=== PATIENT | male | born 1950 | race Caucasian/White ===

== ENCOUNTER 2017-05-03 09:23 | Emergency (ER) | payer MEDICARE ==
[2017-05-03 10:24] LABS: BASOPHILS 0.3 % (0-2); EOSINOPHILS 2.3 % (0-7); HEMATOCRIT 52.4 % (42.0-54.0); HEMOGLOBIN 18.5 g/dL (13.5-17.5); IMMATURE GRANULOCYTES 0.6 % (0-5); MCH 32.1 pg (26.0-34.0); MCHC 35.3 g/dL (31.0-37.0); MEAN PLATELET VOLUME 12.3 fL (7.4-10.4); MONOCYTES 10.5 % (2-11); NEUTROPHILS 75.3 % (40-80); PLATELET COUNT 144 10x3/uL (130-400); RBC 5.76 10x6/uL (4.20-6.10); RDW 13.7 % (11.5-14.5); WBC 6.2 10x3/uL (4.8-10.8)
[2017-05-03 10:39] LABS: ALBUMIN 4.1 g/dL (3.4-5.0); ALKALINE PHOSPHATASE 84 U/L (46-116); ALT (SGPT) 29 U/L (10-68); CALC OSMOLALITY 276 mosm/kg (275-300); CALCIUM 9.1 mg/dL (8.5-10.1); CHLORIDE - SERUM 103 mmol/L (98-107); CREATININE - SERUM 1.4 mg/dL (0.6-1.3); GLUCOSE 98 mg/dL (74-106); PROTEIN - SERUM 7.5 g/dL (6.4-8.2); SODIUM 137 mmol/L (136-145); UREA NITROGEN 22 mg/dL (7-18); eGFR NON AFRICAN AMERICAN 54 mL/min (90-120)
[2017-05-03 10:50] LABS: CHOL - HDL RATIO 5.1 ratio (2.3-4.9); CHOLESTEROL, TOTAL 174 mg/dL (0-200); CKMB 2.2 U/L (0.0-3.6); CREATINE KINASE 226 UL (21-232); HDL CHOLESTEROL 34 mg/dL (32-96); LDL CHOLESTEROL 114 mg/dL (0-100); LDL-HDL RATIO 3.4 ratio (1.5-3.5); TRIGLYCERIDE 133 mg/dL (30-200); TROPONIN-I 0.018 ng/mL (0.000-0.060)
[2017-05-03 22:23] VITALS: BMI 29.0
[2017-05-03] MEDS ORDERED: HYDRALAZINE HCL50 MG PO (23:01)
[2017-05-03] MEDS ORDERED: DIOVAN160 MG PO (23:02)
[2017-05-04] MEDS ORDERED: HYDROCHLOROTHIA25 MG PO (16:36)
[2017-05-04] MEDS ORDERED: COREG12.5 MG PO (16:37)
== END 2017-05-03 10:34 | disposition home or self-care (01) ==
LOC: D.ER 09:23
PROVIDERS: Emergency Medicine
DX: I49.9 Cardiac arrhythmia, unspecified (principal); I10 Essential (primary) hypertension; I49.3 Ventricular premature depolarization

== ENCOUNTER 2017-05-03 16:18 | Observation (INO) | payer MEDICARE ==
[~2017-05-03] VITALS: Ht 170.2 cm; Wt 84.0 kg
--- NOTE | ~2017-05-03 | HEMODYNAMI ---
PATIENT:PACO CROW MEDICAL RECORD: [id number] : 52 LOCATION:[address] ADMISSION DATE: 05/03/17 Generatedon:05/04/201716:07 Patient name: PACO CROW Patient #: [id number] SSN: : 1950 Date of study: 05/04/2017 Page: Of Hemodynamic Procedure Report Patient Data Patient Demographics Procedure consent was obtained First Name: PACO Gender: Male Last Name: TRISTIN : 1950 [facility] Initial: R Age: 66 year(s) Patient #: [id number] Race: Unknown Additional ID: [id number] Contact details Address: [place] [address] [facility] [place] [facility] Zip code: [address] Past Medical History Allergies: No known allergies Admission Admission Data Admission Date: 05/03/2017 Admission Time: 18:40 Admit Source: Other Room #: 2129 Procedure Procedure Types Cath Procedure Diagnostic Procedure LHC LH w/Coronaries Miscellaneous Procedures Moderate Sedation up to 15 minutes Peripheral Cath Diagnostic Procedure Abd/Extremity Aortagram Procedure Description Procedure Date Procedure Date: 05/04/2017 Procedure Start Time: 15:34 Procedure End Time: 16:05 Procedure Staff Name Function Ramón Fitzgerald MD Performing Physician Jacky Hazel RT Monitor Rigo Collins RT Scrub Denny Mcnulty RN Nurse Procedure Data Cath Procedure Fluoroscopy Diagnostic fluoroscopy Total fluoroscopy Time: 7 time: 7 min min Diagnostic fluoroscopy Total fluoroscopy dose: 310 dose: 310 mGy mGy Contrast Material Contrast Material Type Amount (ml) Isovue 300 146 Entry Location Entry Primary Successful Side Size Upsize Upsize Entry Closure Succes sful Closure Location (Fr) 1 (Fr) 2 (Fr) Remarks Device Remarks Femoral Left 5 Fr Exoseal artery Estimated blood loss: 10 ml Diagnostic catheters Device Type Used For End Catheter Placement MULTIPACK JL 4.0 5Fr Procedure catheter DIAGNOSTIC JL 5 5Fr Procedure catheter ([id number]) MULTIPACK 3DRC 5Fr Procedure catheter DIAGNOSTIC AR MOD 5Fr Procedure Catheter ([id number]) MULTIPACK Pigtail 5 Fr Procedure catheter Procedure Complications No complications Procedure Medications Medication Administration Route Dosage Oxygen NC 2 l/min Heparin Flush Bag added to field 2 bags (1000units/500ml NS) 0.9% NaCl I.V. 100 ml/hr Radial Cocktail added to field 1 syringe (Verapomil 2mg/Nitro 400mcg/Heparin 1500units) Fentanyl I.V. 100 mcg Versed I.V. 2 mg Fentanyl I.V. 100 mcg Versed I.V. 2 mg Lopressor I.V. 5 mg Hemodynamics Rest Heart Rate: 94 (bpm) Pressure Samples Time Site Value (mmHg) Purpose Heart Use Rate(bpm) 15:47 AO 166/107(133) Snapshot 82 15:55 LV 185/-19,5 Snapshot 88 15:55 AO 176/115(143) Pullback 88 15:55 LV 175/-5,9 Pullback 88 Gradients Valve Time Site 1 Site 2 Mean SEP/DFP Peak To Heart Use (mmHg) (sec/min) Peak Rate (mmHg) (bpm) Aortic 15:55 LV AO 0 13 0 88 175/-5,9 176/115(143) Calculations Valve P-P Mean Valve Index Valve Source Name Gradient Area Flow (cm2) Aortic 0 0 0 0 Snapshots Pre Cath Intra NCS Post Cath Vital Signs Time Heart Resp SPO2 etCO2 NIBP (mmHg) Rhythm Pain Sedation Rate (ipm) (%) (mmHg) Status Level (bpm) 15:21:58 93 17 96 29.9 188/120(170) NSR 0 (11) 10(A) , No pain 15:26:42 82 17 93 28.4 187/116(154) NSR 0 (11) 10(A) , No pain 15:31:19 84 17 94 33.6 195/123(140) NSR 0 (11) 10(A) , No pain 15:36:03 83 18 96 35.2 201/129(154) NSR 0 (11) 10(A) , No pain 15:40:44 91 19 94 30.7 190/128(156) NSR 0 (11) 10(A) , No pain 15:45:21 81 18 93 35.2 166/122(143) NSR 0 (11) 10(A) , No pain 15:49:51 81 16 94 38.9 169/110(144) NSR 0 (11) 10(A) , No pain 15:54:23 104 18 94 35.2 169/116(148) NSR 0 (11) 10(A) , No pain 15:58:54 79 16 95 28.4 184/124(171) NSR 0 (11) 10(A) , No pain 16:03:26 71 16 93 34.4 168/111(137) NSR 0 (11) 10(A) , No pain Medications Time Medication Route Dose Verified Delivered Reason Notes Eff ectiveness by by 15:22:04 Oxygen NC 2 l/min Ramón Baldwin Per [facility] Marcelino Mcnulty RN physician 15:22:14 Heparin Flush added 2 bags Ramón Baldwin used for Bag to [facility] Marcelino Mcnulty RN procedure (1000units/500ml field NEUMANN NS) 15:22:25 0.9% NaCl I.V. 100 Ramón Denny Per ml/hr [facility] Marcelino Mcnulty RN physician 15:22:33 Radial Cocktail added 1 Ramón Denny used for (Verapomil to syringe [facility] Marcelino Mcnulty prospecting driller 2mg/Nitro field NEUMANN 400mcg/Heparin 1500units) 15:35:11 Fentanyl I.V. 100 mcg Ramón Baldwin for [facility] Marcelino Mcnulty RN sedation 15:35:18 Versed I.V. 2 mg Ramón Baldwin for [facility] Marcelino Mcnulty RN sedation 15:42:25 Fentanyl I.V. 100 mcg Ramón Baldwin for [facility] Marcelino Mcnulty RN sedation 15:42:29 Versed I.V. 2 mg Ramón Baldwin for [facility] Marcelino Mcnulty RN sedation 15:56:08 Lopressor I.V. 5 mg Ramón Baldwin Per [facility] Marcelino Mcnulty RN physician Procedure Log Time Note 14:55:33 Denny Mcnulty RN sent for patient. Start room use. 15:02:09 Informed consent obtained and on chart 15:02:13 Admit Source: Other 15:02:31 Diagnostic Cath status Elective 15:02:34 Time tracking: Regular hours 15:02:37 Plan of Care:Hemodynamics will remain stable., Cardiac rhythm will remain stable., Comfort level will be maintained., Respiratory function will remain adequate., Patient/ family verbilizes understanding of procedure., Procedure tolerated without complication., Recovers from procedure without complications.. 15:06:42 Patient received from Med II to CCL 3 Alert and oriented. Tansferred to table in Supine position. 15:06:43 Warm blankets applied, and allen hugger turned on for patient comfort. 15:06:44 Correct patient and procedure confirmed by team. 15:06:45 ECG and BP/O2 sat monitors applied to patient. 15:07:07 H&P Date Dictated: 05/03/2017 Within 30 days and on chart.. 15:07:08 Pre-procedure instructions explained to patient. 15:07:09 Pre-op teaching completed and patient verbalized understanding. 15:07:11 Family in patients room. 15:07:12 Patient NPO since Midnight. 15:07:21 Patient allergic to No known allergies 15:20:30 Vital chart was started 15:21:17 Is the patient allergic to Iodine/contrast media? No. 15:21:21 Is patient on blood thinner?No 15:21:22 Patient diabetic? No. 15:21:26 Previous problem with sedation/anesthesia? No ? 15:21:31 Snore? Yes 15:21:32 Sleep apnea? No 15:21:33 Deviated septum? No 15:21:33 Opens mouth fully? Yes 15:21:34 Sticks out tongue? Yes 15:21:36 Airway obstruction? No ? 15:21:38 Dentures? No ? 15:21:41 Pre procedure: left dorsailis pedis pulse 1+ Palpable, but thready & weak; easily obliterated 15:21:44 Modified Cliff's test Ulnar < 7 seconds 15:21:45 Patient pain scale 0/10 ?. 15:21:54 Lab results completed and on chart. 15:22:04 Oxygen 2 l/min NC was administered by Denny Mcnulty RN; Per physician; 15:22:05 Right Radial & Left Groin area was prepped with chlora-prep and draped in sterile fashion 15:22:06 Alarms reviewed by R. N. 15:22:07 Sharps counted by scrub and verified by R.N. 15:22:11 Baseline sample Acquired. 15:22:14 Heparin Flush Bag (1000units/500ml NS) 2 bags added to field was administered by Denny Mcnulty RN; used for procedure; 15::18 Rhythm: sinus rhythm 15:22:20 Full Disclosure recording started 15::25 0.9% NaCl 100 ml/hr I.V. was administered by Denny Mcnulty RN; Per physician; 15::33 Radial Cocktail (Verapomil 2mg/Nitro 400mcg/Heparin 1500units) 1 syringe added to field was administered by Denny Mcnulty RN; used for procedure; 15: --------ALL STOP TIME OUT------ 15::28 Final Timeout: patient, procedure, and site verified with staff and physician. All members of the team are in agreement. 15:27:30 Right Radial & Left Groin site verified by team. 15:27:34 Physical assessment completed. ASA score P 2 - A patient with mild systemic disease as per Ramón Fitzgerald MD. 15:27:37 Sedation plan: IV Moderate Sedation Medication:Versed, Fentanyl 15:30:26 Use device set Radial Dx 15:30:29 Tegaderm 4 x 4 (1626W) opened to sterile field. 15:30:29 ACIST Manifold (34452) opened to sterile field. 15:30:30 ACIST Hand Control (97155) opened to sterile field. 15:30:32 ACIST Syringe (27566) opened to sterile field. 15:30:33 Medline Cath Pack ([id number]) opened to sterile field. 15:30:33 Bag Decanter (2001S) opened to sterile field. 15:30:34 SHEATH 6FR Slender ([id number]) opened to sterile field. 15:30:34 DIAGNOSTIC WIRE .035 260cm J wire (652848) opened to sterile field. 15:30:35 MBrace Wrist Support ([id number]) opened to sterile field. 15:34:45 Procedure started. 15:34:58 Local anesthetic to right radial artery with Lidocaine 2% by Ramón Fitzgerald MD.INITIAL ACCESS ONLY 15:35:11 Fentanyl 100 mcg I.V. was administered by Denny Mcnulty RN; for sedation; 15:35:18 Versed 2 mg I.V. was administered by Denny Mcnulty RN; for sedation; 15:36:08 Zero performed for pressure channel P1 15:40:59 Unable to advance wire due to radial loop. Moving to Femoral approach. 15:41:13 SHEATH 5FR Benson (KHT771) opened to sterile field. 15:41:21 Local anesthetic to left femerol artery with Lidocaine 2% by Ramón Fitzgerald MD.ADDITIONAL ACCESS 15:42:00 A 5 Fr sheath was inserted into the Left Femoral artery 15:42:04 Use device set Multipack Set 15:42:06 DIAGNOSTIC Multipack 5Fr catheter set ([id number]) opened to sterile field. 15:42:25 Fentanyl 100 mcg I.V. was administered by Dneny Mcnulty RN; for sedation; 15:42:29 Versed 2 mg I.V. was administered by Denny Mcnulty RN; for sedation; 15:44:03 A MULTIPACK JL 4.0 5Fr catheter was advanced over the wire and used for Procedure. 15:45:21 Catheter removed. unable to cannulate vessel. 15:45:33 A DIAGNOSTIC JL 5 5Fr catheter ([id number]) was advanced over the wire and used for Procedure. 15:47:28 LCA angiography performed. 15:48:36 Catheter exchanged over wire. 15:49:00 A MULTIPACK 3DRC 5Fr catheter was advanced over the wire and used for Procedure. 15:51:21 Catheter removed. unable to cannulate vessel. 15:51:43 A DIAGNOSTIC AR MOD 5Fr Catheter (344884F) was advanced over the wire and used for Procedure. 15:53:13 RCA angiography performed. 15:53:39 Catheter exchanged over wire. 15:53:45 A MULTIPACK Pigtail 5 Fr catheter was advanced over the wire and used for Procedure. 15:55:20 LV angiography performed. 15:55:31 LV gram done using AWAN 15:55:35 EF : 55 % 15:55:37 LV hemodynamics recorded. 15:55:40 Injector settings: Ml/sec: 10, Volume: 20, 15:56:08 Lopressor 5 mg I.V. was administered by Denny Mcnulty RN; Per physician; 15:56:32 Abdominal Aortagram was performed. 15:57:04 Injector settings: Ml/sec: 10, Volume: 20, 15:57:14 Catheter removed. 15:57:25 EXOSEAL 5Fr (EX500) opened to sterile field. 15:59:29 Sheath removed intact; hemostasis achieved with Exoseal to the Left Femoral artery. 15:59:31 Procedure ended.(Physican Out) 15:59:58 Contrast amount:Isovue 300 146ml. 16:00:26 Fluoroscopy time 07.00 minutes. 16:00:30 Fluoroscopy dose: 310 mGy 16:00:30 Flurop Dose total: 310 16:00:32 Sharps counted by scrub and verified by R.N. 16:00:33 Insertion/operative site no bleeding no hematoma. 16:00:36 Post-op/insertion site Left Femoral artery dressed using a 4 x 4 and Tegaderm. 16:00:38 Post Procedure Pulses reassessed and unchanged 16:00:40 Post-procedure physical assessment completed. ASA score P 2 - A patient with mild systemic disease as per Ramón Fitzgerald MD. 16:00:43 Post procedure rhythm: unchanged. 16:00:46 Estimated blood loss: 10 ml 16:00:47 Post procedure instruction explained to patient.Patient verbalizes understanding. 16:00:47 Patient needs reinforcement of post procedure teaching. 16:01:19 Procedure type changed to Cath procedure, Diagnostic procedure, LHC, LHC w/Coronaries, Miscellaneous Procedures, Moderate Sedation up to 15 minutes, Peripheral Cath Diagnostic Procedure, Abd/Extremity, Aortagram 16:03:01 Procedure and supply charges have been captured, reviewed, submitted and are correct. 16:03:04 Procedure Complication : No complications 16:05:39 Vital chart was stopped 16:05:39 See physician's report for complete and final results. 16:05:41 Report given to PCU. 16:05:43 Patient transfered to PCU with Bed. 16:05:45 Procedure ended. 16:05:45 Full Disclosure recording stopped 16:05:55 End room use (Document Last) Device Usage Item Name Manufacture Quantity Catalog Hospital Part Current Minima l Lot# / Number Charge Number Stock Stock Serial# Code Tegaderm 4 x 3M 1 1626W [id number] 663578 322433 5 4 (1626W) ACIST Acist 1 48043 316512 195190 285476 5 Manifold Medical (46690) Systems Inc ACIST Hand Acist 1 26480 300397 453458 631045 5 Control Medical (58901) Systems Inc ACIST Acist 1 63766 953693 467110 147657 20 Syringe Medical (31497) Systems Inc Medline Cath Cardinal 1 [id number] 171702 93338 530479 5 Pack Health ([id number]) Bag Decanter Microtek 1 2001S 556968 71806 589379 5 (2001S) Medical Inc. SHEATH 6FR Terumo 1 [id number] 438230 451488 317201 40 Slender ([id number]) DIAGNOSTIC [facility] 1 247583 329485 949566 290400 30 WIRE .035 260cm J wire (497025) MBrace Wrist Advanced 1 140-0250-00 981081 61592 520487 5 Support Vascular ([id number]) Dynamics SHEATH 5FR Terumo 1 LIQ250 405611 072364 513413 40 Benson (KPH707) DIAGNOSTIC Cardinal 1 AN4292 555702 93211 056042 30 Multipack Health 5Fr catheter set (EU5131) MULTIPACK JL Cardinal 1 444542 5 4.0 5Fr Health catheter DIAGNOSTIC Cardinal 1 [id number] 412608 615121 812959 5 JL 5 5Fr Health catheter (881475Z) MULTIPACK Cardinal 1 588381 5 3DRC 5Fr Health catheter DIAGNOSTIC Cardinal 1 [id number] 123871 312643 172554 15 AR MOD 5Fr Health Catheter (091658M) MULTIPACK Cardinal 1 214358 5 Pigtail 5 Fr Health catheter EXOSEAL 5Fr Cardinal 1 EX500 421465 163008 132588 10 (EX500) Health Signature Audit [place] Stage Time Signature Unsigned Intra-Procedure 05/04/2017 Jacky Hazel 4:07:38 PM RT(R) Signatures Monitor : Jacky Hazel RT Signature : Date : Time : [place] [id number] [place] [address]
[2017-05-03 16:59] LABS: BASOPHILS 0.3 % (0-2); EOSINOPHILS 1.3 % (0-7); HEMATOCRIT 53.4 % (42.0-54.0); HEMOGLOBIN 19.1 g/dL (13.5-17.5); IMMATURE GRANULOCYTES 0.4 % (0-5); LYMPHOCYTES 14.7 % (15-50); MCH 32.4 pg (26.0-34.0); MCHC 35.8 g/dL (31.0-37.0); MCV 90.5 fL (80.0-100.0); MEAN PLATELET VOLUME 12.2 fL (7.4-10.4); NEUTROPHILS 70.3 % (40-80); PLATELET COUNT 166 10x3/uL (130-400); RDW 13.6 % (11.5-14.5); WBC 7.6 10x3/uL (4.8-10.8)
[2017-05-03 17:23] LABS: APTT 35.9 SECONDS (22.8-39.4); INR 0.95 (0.85-1.17); PROTIME 12.3 SECONDS (11.6-15.0)
[2017-05-03 17:32] LABS: ANION GAP 14.9 mmol/L (8-16); BILIRUBIN - TOTAL 0.64 mg/dL (0.2-1.3); CALCIUM 8.8 mg/dL (8.5-10.1); CARBON DIOXIDE 21.9 mmol/L (21.0-32.0); CREATININE - SERUM 1.4 mg/dL (0.6-1.3); POTASSIUM - SERUM 3.8 mmol/L (3.5-5.1); PROTEIN - SERUM 7.2 g/dL (6.4-8.2)
[2017-05-03 17:36] LABS: TROPONIN-I 0.034 ng/mL (0.000-0.060)
--- NOTE | 2017-05-03 20:39 | NUR ---
PT ARRIVED TO FLOOR FROM ER BY WHEELCHAIR. ACCOMPANIED BY HOSPITAL STAFF AND , LASHAWN. VSS. BREATHING EVEN AND UNLABORED. ON 2L OXYGEN VIA NC. ORIENTED PT TO ROOM, NURSE, AND FLOOR. DENIES ANY NEEDS AT THIS TIME. WILL CTM.
[2017-05-03 22:23] VITALS: BP 168/102; Ht 170.2 cm; Wt 84.0 kg
[2017-05-03] MEDS ORDERED: HYDRALAZINE HCL50 MG PO (23:01)
[2017-05-03] MEDS ORDERED: DIOVAN160 MG PO (23:02)
[2017-05-04 04:00] VITALS: BP 159/106
--- NOTE | 2017-05-04 07:15 | NUR ---
RECIEVED REPORT ON PATIENT, PATIENT IS ALERT AND ORIENTED AT THIS TIME. PATIENT HAS A R FA IV WITH NS INFUSING AT 50ML/HR. PATIENT IS SR ON MONITOR WITH A RATE OF 73. PATIENT IS AT BEDSIDE. PATIENT IS CONCERNED ABOUT HIS BNP AND MEDICATIONS NOT BEING RESTARTED, WILL TALK WITH DR REY AND GET MEDICATIONS RESTARTED. DENIES ANY OTHER NEEDS. CALL LIGHT IN REACH. CPOC
[2017-05-04 08:00] VITALS: BP 149/102
[2017-05-04 08:51] LABS: BASOPHILS 0.5 % (0-2); CALCIUM 8.8 mg/dL (8.5-10.1); CREATININE - SERUM 1.8 mg/dL (0.6-1.3); EOSINOPHILS 2.2 % (0-7); HEMATOCRIT 50.7 % (42.0-54.0); HEMOGLOBIN 17.4 g/dL (13.5-17.5); IMMATURE GRANULOCYTES 0.2 % (0-5); LYMPHOCYTES 18.3 % (15-50); MCH 31.8 pg (26.0-34.0); MCHC 34.3 g/dL (31.0-37.0); MEAN PLATELET VOLUME 12.4 fL (7.4-10.4); MONOCYTES 10.9 % (2-11); NEUTROPHILS 67.9 % (40-80); PLATELET COUNT 146 10x3/uL (130-400); RBC 5.47 10x6/uL (4.20-6.10); RDW 13.8 % (11.5-14.5); WBC 6.5 10x3/uL (4.8-10.8)
[2017-05-04 08:57] LABS: MCV 92.7 fL (80.0-100.0)
--- NOTE | 2017-05-04 09:20 | NUR ---
MORNING MEDICATION GIVEN. DENIES ANY NEEDS AT THIS TIME. CONSENTS SIGNED FOR HEART CATH. PATIENT REFUSING TO GET EKG DONE, STATED THAT DR REY STATED HE DIDN'T HAVE TO HAVE ANOTHER. DENIES ANY NEEDS. CPOC
--- NOTE | 2017-05-04 11:00 | NUR ---
PATIENT RESTING AT THIS TIME, NAD NOTED. BED LOW AND LOCKED. AT BEDSIDE. CPOC
--- NOTE | 2017-05-04 13:00 | NUR ---
PATIENT BP 178/121. 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 CPOC
[2017-05-04 13:16] VITALS: BP 178/121
--- NOTE | 2017-05-04 14:53 | NUR ---
PATIENT PREOP AND READY FOR COGNOS BI ADMINISTRATOR. CPOC
--- NOTE | 2017-05-04 15:30 | NUR ---
PATIENT GONE TO MIDDLE SCHOOL PRINCIPAL
--- NOTE | 2017-05-04 16:30 | NUR ---
PATIENT BACK FROM INSURANCE AGENT, PATIENT Leilani ISAAC WNL. VS STABLE, BESIDES BP PATIENT IS 168/109. DR AWARE. PATIENT DENIES ANY OTHER NEEDS. CPOC
[2017-05-04] MEDS ORDERED: HYDROCHLOROTHIA25 MG PO (16:36)
[2017-05-04] MEDS ORDERED: COREG12.5 MG PO (16:37)
--- NOTE | 2017-05-04 18:17 | NUR ---
ROUNDS MADE, PATIENT NEEDS MET. DENIES ANY FURTHER NEEDS. BED LOW AND LOCKED. CALL LIGHT IN REACH. IV DC WITH CATH TIP INTACT. CPOC
--- NOTE | 2017-05-04 19:15 | NUR ---
DISCHARGE INSTRUCTIONS GIVEN ALONG WITH PRESCRIPTIONS. REMOVED TELEMETRY AND INFORMED PT TO CALL WHEN HE GETS DRESSED AND WE WILL ESCORT THEM OUT VIA W/C.
--- NOTE | 2017-05-04 19:43 | NUR ---
DC HOME VIA WC, AT PTS SIDE.
--- NOTE | 2017-05-12 13:05 | HP ---
PATIENT: PACO CROW MEDICAL RECORD: [id number] ACCOUNT: [id number] LOCATION:[address] : [birth year] ADMISSION DATE: 05/03/17 HISTORY AND PHYSICAL EXAMINATION HISTORY OF PRESENT ILLNESS: A 66-year-old gentleman with no known history of coronary artery disease. He has a history of hypertension, PVCs unifocal in nature, has been having problems with his blood pressure. Yesterday, while tapering off clonidine, he had episode of chest tightness, could not get his deep breath, and nausea. He had no acute ST changes, but returned later with same symptomatology, had elevation in his troponin, certainly concerning for LV strain versus fixed obstructive disease. He is admitted for further evaluation. PAST MEDICAL HISTORY: History of hypertension. ALLERGIES: None known. SOCIAL HISTORY: . He takes care of all ADLs. Social drinker. No illicit drug use. MEDICATIONS: Include valsartan 160 b.i.d., hydralazine 50 t.i.d. REVIEW OF SYSTEMS: The patient reports easy bruising but reports no swollen glands. The patient reports no fever, no night sweats, no significant weight gain, no significant weight loss. No significant exercise tolerance. The patient reports no dry eyes, no irritation, no vision change. Patient reports no difficulty hearing and no ear pain. Patient reports no frequent nose bleeds or nose and sinus problems. Patient reports on arm pain on exertion. No shortness of breath while lying down. No history of heart murmur. Patient reports no cough, no wheezing or coughing up blood. Patient reports no abdominal pain, no vomiting. Normal appetite. No diarrhea and not vomiting blood. No nausea and no constipation. Patient reports no incontinence. No difficulty urinating. No hematuria. No increased frequency. Patient reports no muscle aches. No weakness, no arthralgias, no back pain. No swelling of the extremities. Patient reports no abnormal mole, no jaundice, no rashes. Reports no loss of consciousness. No weakness and no numbness. No seizures, dizziness, or headaches. The patient reports no depression, no sleep disturbance, feeling safe in a relationship and no alcohol abuse. Patient reports on fatigue. Reports no runny nose or sinus pressure. No itching, no hives, and no frequent sneezing. PHYSICAL EXAMINATION: GENERAL: Pleasant gentleman, in no acute distress, appears stated age. VITAL SIGNS: Pulse 76 and regular, blood pressure 149/102. HEENT: Normocephalic, atraumatic. NECK: No JVD or bruit. HEART: Regular. LUNGS: Good air excursion. ABDOMEN: Soft, nontender. EXTREMITIES: Pulse 2+ with no edema. IMPRESSION: Elevated troponin, questionable whether secondary to strain from some rebound coming off clonidine or a true fixed lesion. Will discuss with family. HISTORY AND PHYSICAL [id number] PACO CROW PLAN: Diagnostic angiography. Intervention based on the above. TRANSINT:[id number] Voice Confirmation ID: [id number] DOCUMENT ID: [id number] GWENDOLYN REY MD at 1305 CC: [id number] DICTATION DATE: 05/04/1759 RECREATION CLERK: 05/04/17 1029 DIS IN 05/04/17 [facility] [address] [place] [address]
--- NOTE | 2017-05-12 13:05 | OP ---
PATIENT NAME: PACO CROW MEDICAL RECORD: [id number] :52 LOCATION:[address] ADMISSION DATE:05/03/17 SURGEON: GWENDOLYN REY MD DATE OF OPERATION: 05/04/2017 PROCEDURES: Left heart catheterization, selective coronary plus abdominal aortogram, right femoral approach. CATHETERS: A 5-Malay sheath, 5/4 Flor, 5/4 pig. The procedure was well tolerated. The patient returned to the parks, sheath removed. ExoSeal device placed. FINDINGS: Left ventriculography in the 30-degree AWAN view. Normal wall motion, normal systolic function. CORONARY ANATOMY. LEFT MAIN: Left main is free of disease. LAD: It is free of disease in the diagonal system. CIRCUMFLEX: Free of disease in the marginal system. RIGHT CORONARY ARTERY: Codominant system free of disease. At the end of procedure, the pigtail catheter was withdrawn to the level of the renal arteries, abdominal aortogram was performed that showed no evidence of aneurysm, a smooth-walled vessel. No evidence of stenosis about the renal artery. TRANSINT:[id number] Voice Confirmation ID: [id number] DOCUMENT ID: [id number] GWENDOLYN REY MD at 1305 CC: [id number] DICTATION DATE: 05/04/17 161 ENGINEERING RECRUITER: 05/04/171956 DIS IN 05/04/17 [facility] [address] [place] [address]
== END 2017-05-04 19:40 | disposition home or self-care (01) ==
LOC: D.ER 16:18 → D.M2 18:40 → OBSVTIME 18:40 → D.M2 05-04 19:40
PROVIDERS: Emergency Medicine; ADMIT Internal Medicine Interventional Cardiology
DX: I10 Essential (primary) hypertension (principal); R79.89 Other specified abnormal findings of blood chemistry

== ENCOUNTER → 2018-09-27 09:15 | Outpatient (CLI) | payer MEDICARE ==
[~2018-09-27 09:15] MED LIST: COREG12.5 MG PO; DIOVAN160 MG PO; HYDRALAZINE HCL50 MG PO; HYDROCHLOROTHIA25 MG PO
--- NOTE | 2018-10-02 10:06 | EC ---
PATIENT:PACO CROW DATE OF SERVICE: 09/27/18 SEX: M MEDICAL RECORD: [id number] DATE OF : 52 LOCATION:D[facility] AGE OF PATIENT: 68 ADMISSION DATE: 09/27/18 REFERRING PHYSICIAN: INTERPRETING PHYSICIAN: GWENDOLYN REY MD ECHOCARDIOGRAM REPORT ECHO CHARGES 4 ECHO COMPLETE Date: 09/27/18 CLINICAL DIAGNOSIS: H/O HTN ECHOCARDIOGRAPHIC MEASUREMENTS (adult normal given) AC root (d.<3.7cm) 4.1 cm LV Septum d (<1.2 cm> 1.2 cm Valve Excursion 2.2 cm LV Septum (systole) 1.6 cm Left Atria (s.<4.0cm> 4.6 cm LVPW d(<1.2cm) 1.2 cm RV (d.<2.3cm) 3.0 cm LVPW (sytole) 1.9 cm LV diastole(<5.6CM) 6.6 cm MV E-F(>70mm/sec) cm LV systole 4.8 cm LVOT Diameter 2.3 cm MV exc.(>10mm) cm Est.ejection fraction (50-75%) % DOPPLER: LVIT cm/sec A 70.0 cm/sec E 38.0 cm/sec LA cm/sec RVSP 30.0 mmHg LVOT 87.0 cm/sec AOP1/2T m/s Asc. Ao 122 cm/sec RVOT 50.0 cm/sec RA cm/sec PA 96.0 cm/sec AV Gradient Peak 6.0 mmHg AV Mean 3.3 mmHg AV Area 3.0 cm MV Gradient Peak 2.9 mmHg MV Mean 0.78 mmHg MV Area cm COMMENTS: OP - HC Supervisor Compounding And Finishing: Trever BERNAL OMID Field Counsel: 3 Dr. Fitzgerald TAPE# PACS Pericardial Effusion N DATE OF SERVICE: Adequate 2D, color flow, spectral Doppler, and M-Mode. No LVH. LV internal dimension is normal. Wall motion is normal. EF is greater than or equal to 55%. Aortic valve sclerosis without evidence of stenosis on Doppler interrogation. Left atrium dilated at 4.6 cm. Mitral prolapse shows no prolapse. Trace MR. Right-sided chambers grossly normal. Trace TR. TRANSINT:[id number] Voice Confirmation ID: [id number] DOCUMENT ID: [id number] ECHOCARDIOGRAM REPORT [id number] PACO CROW GREGORY A MD at 1006 CC: [id number] DICTATION DATE: 09/27/18 160 PHYSICS FACULTY MEMBER: 09/28/18 0207 DEP CLI 09/27/18 [place] [id number] [place] [address]
== END | disposition home or self-care (01) ==
LOC: D.HCCARDIO 09:15
PROVIDERS: ATTEND Internal Medicine Interventional Cardiology
DX: I10 Essential (primary) hypertension (principal)

== ENCOUNTER → 2020-10-20 09:54 | Outpatient (CLI) | payer MEDICARE ==
--- NOTE | ~2020-10-20 | EC ---
PATIENT:PACO CROW DATE OF SERVICE: 10/20/20 SEX: M MEDICAL RECORD: [id number] DATE OF : 52 [facility] AGE OF PATIENT: 70 ADMISSION DATE: 10/20/20 REFERRING PHYSICIAN: INTERPRETING PHYSICIAN: GWENDOLYN REY MD ECHOCARDIOGRAM REPORT ECHO CHARGES 4 ECHO COMPLETE Date: 10/20/20 CLINICAL DIAGNOSIS: HEART MURMUR HX HTN/RENAL INSUFFICIENCY ECHOCARDIOGRAPHIC MEASUREMENTS (adult normal given) AC root (d.<3.7cm) 4.3 cm LV Septum d (<1.2 cm> 1.6 cm Valve Excursion 2.0 cm LV Septum (systole) 1.8 cm Left Atria (s.<4.0cm> 4.4 cm LVPW d(<1.2cm) 1.5 cm RV (d.<2.3cm) 2.9 cm LVPW (sytole) 2.0 cm LV diastole(<5.6CM) 4.7 cm MV E-F(>70mm/sec) cm LV systole 3.4 cm LVOT Diameter 2.3 cm MV exc.(>10mm) 1.2 cm Est.ejection fraction (50-75%) % DOPPLER: LVIT cm/sec A 92.0 cm/sec E 44.0 cm/sec LA cm/sec RVSP 13 mmHg LVOT 59 cm/sec AOP1/2T m/s Asc. Ao 95 cm/sec RVOT 52 cm/sec RA cm/sec PA 133 cm/sec AV Gradient Peak 3.59 mmHg AV Mean 198 mmHg AV Area 2.8 cm MV Gradient Peak 4.19 mmHg MV Mean 1.60 mmHg MV Area cm COMMENTS: Lacquer Maker: 2 REESE GARCIA Data Communications Engineer: 3 Dr. Fitzgerald TAPE# PACS Pericardial Effusion N DATE OF SERVICE: Adequate 2D, color flow imaging, spectral Doppler, and M-Mode. FINDINGS: LVH present. LV internal dimensions are normal. Wall motion is normal. EF is greater than or equal to 55%. Aortic valve is sclerotic. No evidence of stenosis by Doppler interrogation. Mild AI by color flow imaging. Left atrium is mildly dilated at 4.4 cm. Mitral valve shows no prolapse. Mild MR. Right side is grossly normal. Trace TR. ECHOCARDIOGRAM REPORT [id number] PACO CROW TRANSINT:[id number] Voice Confirmation ID: [id number] DOCUMENT ID: [id number] GWENDOLYN REY MD CC: [id number] DICTATION DATE: 10/21/20 1445 BOX TRUCK OWNER OPERATOR: 10/22/20 0011 DEP CLI 10/20/20 [place] [id number] [place] [id number]
== END | disposition home or self-care (01) ==
LOC: D.HCCECHO 09:54
PROVIDERS: ATTEND Internal Medicine Interventional Cardiology
DX: I10 Essential (primary) hypertension (principal)